=== PATIENT | male | born 1965 | race Caucasian/White ===

== ENCOUNTER 2016-09-28 13:21 | Emergency (ER) | payer BC | END 2016-09-28 16:07 | disposition home or self-care (01) | LOC: ER 13:21 | DX: S42.411A Displaced simple supracondylar fracture without intercondylar fracture of right humerus, initial encounter for closed fracture (principal); E11.9 Type 2 diabetes mellitus without complications; F17.220 Nicotine dependence, chewing tobacco, uncomplicated; Z79.84 Long term (current) use of oral hypoglycemic drugs; W28.XXXA Contact with powered lawn mower, initial encounter ==

== ENCOUNTER 2016-10-09 20:18 | Emergency (ER) | payer BC | END 2016-10-09 23:13 | disposition critical access hospital (66) | LOC: ER 20:18 | DX: A41.9 Sepsis, unspecified organism (principal); E13.10 Other specified diabetes mellitus with ketoacidosis without coma; N39.0 Urinary tract infection, site not specified; E87.1 Hypo-osmolality and hyponatremia | CPT/HCPCS: 36415; 80307; 96361; 96365; 96375; 96376 ==